=== PATIENT | female | born 1955 | race Caucasian/White ===

== ENCOUNTER 2024-05-06 10:10 | Inpatient (IN) | payer OTHER, MEDICAID ==
[~2024-05-06] VITALS: Ht 154.9 cm; Wt 42.0 kg
[2024-05-06 11:46] LABS: Basophils # (auto) 0 10 ^3/uL (0-0.2); Basophils % (auto) 0.5 % (0.0-2.0); Eosinophils # (auto) 0.1 10 ^3/uL (0-0.8); Eosinophils % (auto) 1.4 % (0.0-7.0); Hematocrit 44.8 % (36.0-46.0); Hemoglobin 14.9 g/dL (12.2-16.2); Lymphocytes # (auto) 2.1 10 ^3/uL (0.4-5.4); Mean Corpuscular Hemoglobin 30.8 pg (28.0-32.0); Mean Corpuscular Hgb Conc. 33.3 g/dL (32.0-36.0); Mean Corpuscular Volume 92.7 fL (80.0-100.0); Monocytes # (auto) 0.6 10 ^3/uL (0-1.3); Monocytes % (auto) 8.1 % (0.0-12.0); Neutrophils # (auto) 4.5 10 ^3/uL (1.6-8.6); Platelet Count (auto) 176 10^3/uL (140-450); Red Blood Cells 4.83 10^6/uL (4.0-5.20); Red Cell Distribution Width 13.6 % (11.8-14.3); White Blood Cell 7.3 10^3/uL (4.4-10.8)
[2024-05-06 12:04] LABS: Urine Bacteria None Seen /hpf (None Seen)
[2024-05-06 12:04] LABS: Alanine Aminotransferase 22 U/L (7-40); Albumin 4.4 g/dL (3.2-4.8); Alkaline Phosphatase 95 U/L (46-116); Anion Gap 3 (5-15); Aspartate Aminotransferase 16 U/L (13-40); BUN/Creatinine Ratio 28.1 (10.0-20.0); Blood Urea Nitrogen 18 mg/dL (9-23); Calcium 9.9 mg/dL (8.7-10.4); Carbon Dioxide 29 mmol/L (20-30); Chloride 106 mmol/L (98-107); Glucose 88 mg/dL (74-106); Sodium 138 mmol/L (136-145)
[2024-05-06 12:05] LABS: Bilirubin, Total 0.5 mg/dL (0.2-1.0); Total Protein 6.6 g/dL (5.7-8.2)
[2024-05-06 12:25] VITALS: BP 152/79; PULSE 56; RESP 17; TEMP 98.3; O2SAT 99
[2024-05-06 12:28] LABS: Urine Blood Negative /uL (Negative); Urine Clarity Clear (Clear); Urine Color Light-Yellow (Yellow); Urine Protein, UAD Negative (Negative); Urine Specific Gravity 1.003 (1.001-1.035); Urine Urobilinogen Normal (Negative); Urine WBC <1 /hpf (0 - 5)
[2024-05-06] MEDS: NITROGLYCERIN 0.4 MG SL TAB SL ONE (12:37)
[2024-05-06] MEDS: hydrALAZINE HCL 20 MG/ML VL IV ONE (12:37)
[2024-05-06] MEDS: ATORVASTATIN 20 MG TAB PO ONE (15:09)
[2024-05-06] MEDS: ASPirin-EC 81 mg tab PO ONE (15:12)
[2024-05-06] MEDS ORDERED: HYDROcodone-ACET 5/325MG TAB PO PRN (15:45)
[2024-05-06] MEDS ORDERED: DOCUSATE SOD 100 MG CAP PO PRN (15:45)
[2024-05-06] MEDS ORDERED: MORPHINE SULFATE INJ 2 MG/ml SYRG IV PRN (15:45)
[2024-05-06] MEDS ORDERED: NITROGLYCERIN 0.4 MG SL TAB SL PRN (15:45)
[2024-05-06] MEDS ORDERED: ONDANSETRON HCL 4 MG/2 ML VIAL IV PRN (15:45)
[2024-05-06] MEDS ORDERED: ACETAMINOPHEN 325 MG TAB PO PRN (15:45)
[2024-05-06] MEDS: amLODIPine BESYLATE 5 MG TAB PO ONE (16:52)
[2024-05-06] MEDS: SODIUM CHLORIDE 0.9% 1,000 ML IV SCH (16:52)
[2024-05-07] MEDS ORDERED: amLODIPine BESYLATE 5 MG TAB PO SCH (10:00)
== END 2024-05-06 19:59 | disposition left against medical advice (07) | DRG 305 ==
LOC: ER 10:10 → TELE 15:36
PROVIDERS: ADMIT Nurse Practitioner Family; ATTEND Nurse Practitioner Family
DX: I16.0 Hypertensive urgency (principal); F31.9 Bipolar disorder, unspecified; Z53.29 Procedure and treatment not carried out because of patient's decision for other reasons; F17.210 Nicotine dependence, cigarettes, uncomplicated; Z79.899 Other long term (current) drug therapy
CPT/HCPCS: 36415; 70450; 70551; 71045; 80053; 81001; 83880; 84484; 85025; 93005; 99291; G0378